=== PATIENT | male | born 1950 | race Caucasian/White ===

== ENCOUNTER 2017-09-10 21:46 | Inpatient (IN) | payer MEDICARE, OTHER ==
[~2017-09-10] VITALS: Ht 172.7 cm; Wt 79.4 kg
[~2017-09-10 21:46] MED LIST: ACET-868 PO; AMIN30LI4 PO; BISA-79 PO; CARV6.252 PO; CLOP75TA15 PO; DEXT1CAP3 PO; DOCU-141 PO; DULO60CA45 PO; LEVO88TA5 PO; LISI-607 PO; MAGN400O21 PO; NA P133E RC; SIMV40TA5 PO
--- NOTE | 2017-09-10 21:50 | NUR ---
[facility] EMS FROM [facility] FOR RIGHT ARM PAIN. NAD NOTED, VSS, RESP EVEN AND UNLABORED, PT WAS PUT ON MONITOR, WAITING FOR MD CAMPBELL.
[2017-09-10] MEDS ORDERED: HYDROCODONE/APAP 5/325MG 1 EACH TABLET ONE (22:27)
[2017-09-10] MEDS ORDERED: HYDROCODONE/APAP 5/325MG 1 EACH TABLET PO ONE (22:30)
[2017-09-10] MEDS ORDERED: IOHEXOL-300 100 ML VIAL IV ONE (22:43)
[2017-09-10] MEDS ORDERED: IV NS 0.9% 250 ML IV ONE (22:43)
[2017-09-10 23:00] LABS: CALCIUM, SERUM 8.9 mg/dL (8.5-10.1); CARBON DIOXIDE 29 mmol/L (21-32); CHLORIDE 108 mmol/L (98-107); CREATININE 1.2 mg/dL (0.6-1.3); GLUCOSE 92 mg/dL (74-106); POTASSIUM 4.5 mmol/L (3.5-5.1); SODIUM SERUM 142 mmol/L (136-145); UREA NITROGEN, BLOOD 26 mg/dL (7-18)
[2017-09-10 23:04] LABS: INR 0.99 (0.87-1.13)
[2017-09-10 23:07] LABS: BASOPHILS # (AUTO) 0.1 /CMM (0.0-0.2); BASOPHILS % (AUTO) 1.5 % (0.0-2.0); EOSINOPHILS # (AUTO) 0.8 /CMM (0.0-0.7); EOSINOPHILS % (AUTO) 9.9 % (0.0-6.0); HEMATOCRIT 34 % (39-51); HEMOGLOBIN 11.9 g/dL (13.5-17.5); LYMPHOCYTES % (AUTO) 39.2 % (20.0-44.0); MEAN CORPUSCULAR HEMOGLOBIN 33 PG (26.0-33.0); MEAN CORPUSCULAR HGB CONC 35 g/dl (31.0-36.0); MEAN CORPUSCULAR VOLUME 95 fL (80-96); MONOCYTES # (AUTO) 0.9 /CMM (0.1-1.30); MONOCYTES % (AUTO) 12.2 % (2.0-12.0); NEUTROPHILS # (AUTO) 2.9 /CMM (1.8-8.9); NEUTROPHILS % (AUTO) 37.2 % (43.0-81.0); PLATELET COUNT (AUTO) 109 /CMM (150-450); RDW COEFFICIENT OF VARIATION 12.8 (11.5-15.0); RED BLOOD CELL COUNT(AUTO) 3.57 MIL/uL (4.5-6.0); WHITE BLOOD COUNT (AUTO) 7.7 K/uL (4.3-11.0)
[2017-09-10 23:12] LABS: TROPONIN I < 0.017 ng/mL (0.00-0.056)
[2017-09-10 23:13] LABS: ALANINE AMINOTRANSFERASE 35 U/L (12-78); ALBUMIN 3.1 g/dL (3.4-5.0); ALCOHOL, BLOOD < 3 mg/dL (0-0); ALKALINE PHOSPHATASE 55 U/L (46-116); ASPARTATE AMINOTRANSFERASE 26 U/L (15-37); BILIRUBIN,DIRECT 0.1 mg/dL (0.0-0.2); BILIRUBIN,TOTAL 0.6 mg/dL (0.2-1.0)
--- NOTE | 2017-09-11 00:55 | NUR ---
PT TO CT
--- NOTE | 2017-09-11 01:15 | NUR ---
PT BACK FROM CT
[2017-09-11] MEDS ORDERED: MAGNESIUM HYDROXIDE 30 ML UDC PO PRN (03:00)
[2017-09-11] MEDS ORDERED: BISACODYL (5 MG) 5 MG TABLET.DR PO PRN (03:00)
[2017-09-11] MEDS ORDERED: ONDANSETRON HCL/PF 4 MG/2 ML VIAL IVP PRN (03:00)
[2017-09-11] MEDS ORDERED: ZOLPIDEM TARTRATE 5 MG TABLET PO PRN (03:00)
[2017-09-11] MEDS ORDERED: MAG HYDROX/AL HYDROX/SIMETH 30 ML UDC PO PRN (03:00)
[2017-09-11] MEDS ORDERED: Z GUARD REMEDY 2 OZ OINT TP PRN (03:00)
[2017-09-11] MEDS ORDERED: HYDROCODONE/APAP 5/325MG 1 EACH TABLET PO PRN (03:00)
--- NOTE | 2017-09-11 03:07 | NUR ---
Report given to Екатерина TAN for continuation of care.
--- NOTE | 2017-09-11 03:11 | NUR ---
pt to [facility] via [facility].
[2017-09-11 03:15] VITALS: BP 127/80
--- NOTE | 2017-09-11 03:15 | NUR ---
RN MS ADMITTING NOTES RECEIVED PATIENT AWAKE AND ALERT X 2 NOTED CONFUSED, RESPIRATIONS EVEN AND UNLABORED, NO FACIAL GRIMACING NOTED NO COMPLAINTS OF PAIN, IV SITE TO LEFT THUMB 22 GAUGE, INTACT AND PATENT, NO REDNESS NO INFILTRATION PRESENT, BODY ASSESSMENT DONE DISCOLORATIONS TO CHIN , LEFT AND RIGHT TORSO,RIGHT ARM WITH SWELLING AND DISCOLORATION, MD AWARE WITH ADMITTING ORDERS IN PLACE, ORIENTED TO UNIT, STAFF AND ROOM ,SAFETY MEASURES IN PLACE, PERINEAL CARE GIVEN,REPOSITIONED, CALL LIGHT KEPT WITHIN REACH, WILL CONTINUE TO MONITOR.
--- NOTE | 2017-09-11 06:50 | NUR ---
RN MS CLOSING NOTES PATIENT AWAKE AND ALERT X 2 NOTED CONFUSED, RESPIRATIONS EVEN AND UNLABORED, NO FACIAL GRIMACING NOTED NO COMPLAINTS OF PAIN, IV SITE TO LEFT THUMB 22 GAUGE, INTACT AND PATENT, NO REDNESS NO INFILTRATION PRESENT, SAFETY MEASURES IN PLACE, PERINEAL CARE GIVEN, REPOSITIONED ,PATIENT HAD A BOWEL MOVEMENT , CALL LIGHT KEPT WITHIN REACH, WILL CONTINUE TO MONITOR AND ENDORSE TO NEXT SHIFT.
--- NOTE | 2017-09-11 07:00 | NUR ---
RN MS NOTES. CALLED AND LEFT MESSAGE TO [facility] REGARDING DVT PUMPS DELIVERY , ENDORSED TO NEXT SHIFT
--- NOTE | 2017-09-11 07:10 | NUR ---
MSRN OPENING NOTES. PT RECEIVED A&0X1, UNABLE TO RECALL YEAR, LOCATION OR PERSONAL HISTORY. PT TOLERATING ROOM AIR WITHOUT SOB OR RESP DISTRESS. PT DENIES PAIN AND IS WITHOUT S/S OF DISTRESS OR DISCOMFORT. PT WITH IVC WRAPPED AT L THUMB, SITE UN-WRAPPED FOR INSPECTION AND SALINE FLUSH PATENT, NAD AT SITE AND NEURO INTACT. PT BED IN LOWEST LOCKED POSITION WITH HANDRAILSX2 AND CALL RICKS WITHIN REACH, CALL RICKS USE RE-EXPLAINED, BED ALARM ENGAGED. PT BRIEFED ON TODAY'S POC AND IS WITHOUT CONCERN OR COMPLAINT. WILL CONTINUE TO REORIENTATE AND SUPPORT NEEDED.
[2017-09-11 08:00] VITALS: BP 117/87
[2017-09-11] MEDS: ACETAMINOPHEN 325 MG TABLET PO PRN ×2 (08:21→16:56)
[2017-09-11] MEDS: LEVOTHYROXINE SODIUM 88 MCG TABLET PO SCH (08:22)
[2017-09-11] MEDS: DOCUSATE SODIUM 100 MG CAPSULE PO SCH (08:22)
[2017-09-11] MEDS: CARVEDILOL 6.25 MG TABLET PO SCH ×2 (08:22→16:56)
[2017-09-11] MEDS: LISINOPRIL (5MG) 5 MG TABLET PO SCH (08:23)
[2017-09-11] MEDS: DULOXETINE HCL 20 MG CAPSULE.DR PO SCH (08:23)
[2017-09-11] MEDS: CLOPIDOGREL BISULFATE 75 MG TABLET PO SCH (08:23)
--- NOTE | 2017-09-11 10:45 | NUR ---
GEETHA. SPOKE WITH [facility] Karma Snap [facility] JASON R/T PT. JASON REPORTS PT IS NORMALLY CONFUSED AND ESTIMATES PT A&0X1. JASON REPORTS PT HAD A GROUND LEVEL FALL IN ROOM RESULTING IN R ARM PAIN.
[2017-09-11 16:00] VITALS: BP 134/71
--- NOTE | 2017-09-11 18:19 | NUR ---
MSRN CLOSING NOTES. PT REMAINS A&0X1, WITH INTERMITTENT INAPPROPRIATE SMILING OR LAUGHING- MD AWARE. PT TOLERATING ROOM AIR WITHOUT SOB OR RESP DISTRESS. PT WITH PAIN AT RIGHT ARM CURRENTLY CONTROLLED WITH PRN, PT WITHOUT OBVIOUS DISTRESS OR DISCOMFORT. PT IVC REMAINS INTACT, SL AND WRAPPED AT L THUMB, NAD AT SITE AND NEURO INTACT. PT BED IN LOWEST LOCKED POSITION WITH HANDRAILSX2 AND CALL RICKS WITHIN REACH, BED ALARM ENGAGED. ALL DAY NURSE DUTIES ATTENDED TO AND PT IS WITHOUT CONCERN OR COMPLAINT AT THIS TIME. WILL ENDORSE TO NIGHT NURSE AT BEDSIDE FOR JESÚS.
--- NOTE | 2017-09-11 19:15 | NUR ---
MS RN OPENING NOTES: RECEIVED PT IN BED AND IS AWAKE. PT IS LAYING DOWN WATCHING TELEVISION AT THIS MOMENT. PT IS A/OX1. BED ALARM ACTIVATED. PT HAS IV ON L THUMB #22G AND IS PATENT AND INTACT. CALL LIGHT WITHIN PT'S REACH. BED KEPT IN LOW, LOCKED POSITION, AND SIDE RAILS X 2UP. WILL CONTINUE TO MONITOR PT.
[2017-09-11 20:00] VITALS: BP_SYST 110; BP_SYST 128; BP_DIAS 72; BP_DIAS 81
[2017-09-11] MEDS: SIMVASTATIN 40 MG TABLET PO SCH (21:14)
--- NOTE | 2017-09-12 06:31 | NUR ---
MS RN CLOSING NOTES: ALL NEEDS WERE ATTENDED AND ANTICIPATED FOR. PT IS A/OX1. PT AWAKE AND IS WATCHING TELEVISION. BED ALARM ACTIVATED. CALL LIGHT WITHIN PT'S REACH. BED KEPT IN LOW, LOCKED POSITION, AND SIDE RAILS X 2UP. NO SOB NOTED. NO S/S OF DISTRESS. WILL ENDORSE TO AM NURSE FOR JESÚS.
--- NOTE | 2017-09-12 07:45 | NUR ---
RN OPENING NOTES RECEIVED PT. PT IS STABLE AND RESTING IN BED. NO S/S OF RESP DISTRESS OR SOB. NO C/O PAIN AT THIS TIME. PT IS A/OX1 YET, DISPLAYING S/S OF CONFUSION. IV ACCESS LOCATED ON LEFT THUMB 22G SL. SAFETY MEASURES IN PLACE, CALL LIGHT WITHIN REACH. WILL CONTINUE TO MONITOR.
[2017-09-12 08:00] VITALS: BP 128/85
[2017-09-12 08:14] LABS: BILIRUBIN,TOTAL 0.8 mg/dL (0.2-1.0); CALCIUM, SERUM 8.9 mg/dL (8.5-10.1); CREATININE 1.1 mg/dL (0.6-1.3); MAGNESIUM 2.6 mg/dL (1.8-2.4); PHOSPHORUS 3.2 mg/dL (2.5-4.9); POTASSIUM 4.3 mmol/L (3.5-5.1); TOTAL PROTEIN, SERUM 6.9 g/dL (6.4-8.2)
[2017-09-12 08:16] LABS: BASOPHILS % (AUTO) 0.7 % (0.0-2.0); EOSINOPHILS # (AUTO) 0.5 /CMM (0.0-0.7); EOSINOPHILS % (AUTO) 7.2 % (0.0-6.0); HEMATOCRIT 36 % (39-51); HEMOGLOBIN 12.2 g/dL (13.5-17.5); LYMPHOCYTES % (AUTO) 29.2 % (20.0-44.0); MEAN CORPUSCULAR HEMOGLOBIN 32 PG (26.0-33.0); MEAN CORPUSCULAR HGB CONC 34 g/dl (31.0-36.0); MEAN CORPUSCULAR VOLUME 96 fL (80-96); MONOCYTES % (AUTO) 14.9 % (2.0-12.0); NEUTROPHILS # (AUTO) 3.2 /CMM (1.8-8.9); PLATELET COUNT (AUTO) 124 /CMM (150-450); RDW COEFFICIENT OF VARIATION 12.8 (11.5-15.0); WHITE BLOOD COUNT (AUTO) 6.7 K/uL (4.3-11.0)
[2017-09-12 08:22] LABS: THYROID STIMULATING HORMONE 3.419 uIU/mL (0.358-3.74)
[2017-09-12] MEDS: LISINOPRIL (5MG) 5 MG TABLET PO SCH (09:00)
[2017-09-12] MEDS: DULOXETINE HCL 20 MG CAPSULE.DR PO SCH (09:14)
[2017-09-12] MEDS: CARVEDILOL 6.25 MG TABLET PO SCH ×2 (09:15→17:13)
[2017-09-12] MEDS: CLOPIDOGREL BISULFATE 75 MG TABLET PO SCH (09:15)
[2017-09-12] MEDS: LEVOTHYROXINE SODIUM 88 MCG TABLET PO SCH (09:15)
[2017-09-12] MEDS: DOCUSATE SODIUM 100 MG CAPSULE PO SCH (09:15)
[2017-09-12 10:14] LABS: THYROID STIMULATING HORMONE 3.638 uIU/mL (0.358-3.74)
--- NOTE | 2017-09-12 12:47 | NUR ---
WOUND CARE CONSULT: PT EATING LUNCH AT THIS TIME. LIMITED ASSESSMENT AT THIS TIME DUE TO PT EATING. RT ARM NOTED TO HAVE BRUISING, DISCOLORATION AND RAISED AREA TO ARM. DEFER TO MD. WILL SEE PRN. CURRENT DESEAN SCORE IS 15. MD IN AGREEMENT WITH PLAN OF CARE.
[2017-09-12 16:00] VITALS: BP 118/78
[2017-09-12 17:47] LABS: APPEARANCE,URINE SL CLOUDY (CLEAR); BILIRUBIN,URINE NEGATIVE (NEGATIVE); BLOOD, URINE TRACE-INTA Ery/uL (NEGATIVE); COLOR,URINE YELLOW (YELLOW); KETONES,URINE NEGATIVE (NEGATIVE); LEUKOCYTE ESTERASE ,URINE NEGATIVE (NEGATIVE); NITRITE, URINE NEGATIVE (NEGATIVE); PROTEIN,URINE NEGATIVE (NEGATIVE); UGLUCOSE NEGATIVE (NEGATIVE)
[2017-09-12 18:15] LABS: BACTERIA,URINE Many /HPF (None Seen); RBC,URINE 0-2 /HPF (0-2); SQUAMOUS EPITHELIAL CELL,UR Few /HPF (None Seen)
--- NOTE | 2017-09-12 18:29 | NUR ---
RN CLOSING NOTE PT IN BED RESTING. NO S/S OF RESP DISTRESS OR SOB. PT HAS NO C/O PAIN AT THIS TIME. ALL PT NEEDS ANTICIPATED AND MET. SAFETY MEASURES IN PLACE, CALL LIGHT WITHIN REACH. WILL ENDORSE TO MAIL SORTING SUPERVISOR FOR JESÚS.
[2017-09-12 20:00] VITALS: BP 124/81
[2017-09-12] MEDS: SIMVASTATIN 40 MG TABLET PO SCH (23:08)
--- NOTE | 2017-09-13 06:36 | NUR ---
MS RN NOTE PATIENT STABLE. ALL NEEDS MET AND ATTENDED TO. WILL ENDORSE TO DAY SHIFT FOR JESÚS.
[2017-09-13] MEDS: LEVOTHYROXINE SODIUM 88 MCG TABLET PO SCH (07:02)
--- NOTE | 2017-09-13 07:46 | NUR ---
RN OPENING NOTES RECEIVED PT, RESTING COMFORTABLY IN BED,EASILY AROUSABLE DURING CARE. RESPIRATIONS EVEN AND UNLABORED, . NO C/O PAIN OR DISCOMFORT AT THIS TIME. PT IS A/OX1 YET, DISPLAYING S/S OF CONFUSION. IV ACCESS LOCATED ON LEFT THUMB 22G SL PATENT AND INTACT, NO REDNESS OR INFILTRATION NOTED. SAFETY MEASURES IN PLACE, CALL LIGHT WITHIN REACH. WILL CONTINUE TO MONITOR.
[2017-09-13 08:00] VITALS: BP 118/85
[2017-09-13] MEDS: DOCUSATE SODIUM 100 MG CAPSULE PO SCH (08:58)
[2017-09-13] MEDS: CLOPIDOGREL BISULFATE 75 MG TABLET PO SCH (08:58)
[2017-09-13] MEDS: CARVEDILOL 6.25 MG TABLET PO SCH ×2 (08:59→16:20)
[2017-09-13] MEDS: LISINOPRIL (5MG) 5 MG TABLET PO SCH (08:59)
[2017-09-13] MEDS: DULOXETINE HCL 20 MG CAPSULE.DR PO SCH (08:59)
[2017-09-13] MEDS: CEFTRIAXONE 1 G in IV D5W 50 ML IV SCH (15:51)
[2017-09-13 16:00] VITALS: BP 123/74
--- NOTE | 2017-09-13 16:40 | NUR ---
RN NOTES ALL DUE MEDICATIONS GIVEN WITH NO ASE NOTED, WILL CONTINUE TO MONITOR
--- NOTE | 2017-09-13 19:16 | NUR ---
RN CLOSING NOTES PT RESTING COMFORTABLY IN BED,EASILY AROUSABLE DURING CARE. RESPIRATIONS EVEN AND UNLABORED, . NO C/O PAIN OR DISCOMFORT AT THIS TIME. PT IS A/OX1 YET, DISPLAYING S/S OF CONFUSION. IV ACCESS LOCATED ON LEFT THUMB 22G SL PATENT AND INTACT, NO REDNESS OR INFILTRATION NOTED. SAFETY MEASURES IN PLACE, CALL LIGHT WITHIN REACH, ENDORSED TO NEXT SHIFT FOR CONTINUITY OF CARE
--- NOTE | 2017-09-13 19:54 | NUR ---
RECIEVED WITH EYES OPEN GOOD EYE CONTACT WHEN NUSE INTODUCES ME AND TOLD HIM TO SAY " hI", HE DID AND SPEECH WAS CLEAR. NOTED HE THEN SHUT HIS EYES . HE WOULD STILL FOLLOW DIRECTIONS LIKE SQUEESE MY HANDS AND HE DID, THE ANIMAL THERAPIST IS WEAK BILATERLLY, HE WIGGLED HIS TOES AND LIFTED BOTH LEGS ONE AT A TIME, BUT KEPT HIS EYES CLOSED. NOTED RESPIRATIONS ARE UNLbored, AND REGULAR, SKIN WRAM AND DRY. BED ALARM ON.
[2017-09-13 20:00] VITALS: BP 114/76
[2017-09-13] MEDS: SIMVASTATIN 40 MG TABLET PO SCH (22:20)
--- NOTE | 2017-09-14 05:00 | NUR ---
CLOSING NOTES: NOTED HIM SMILING AND TALKING ( ONE TO TWO ) WORDS WHEN I AM AT HIS BEDSIDE. FED HIM A SNACK LAST NIGHT AND HE CONSUMED IT 100%, NO PROBLEMS SWALLOWING, EXCEPT THERE IS A NEED TO CRUSH LARGE PILLS. RIGHT ARM ELEVATED ON 2 PILLOWS AND NOTED A DECREASE IN THE SWELLING OF THE HAND AND FINGERS. HE REMAINS CONFUSED, BUT WILL FOLLOW SIMPLE DIRECTIONS. RIGHT HAND STORY READER WEAKER THEN THE LEFT.
[2017-09-14 07:19] LABS: BASOPHILS % (AUTO) 0.1 % (0.0-2.0); EOSINOPHILS # (AUTO) 0.2 /CMM (0.0-0.7); EOSINOPHILS % (AUTO) 2.7 % (0.0-6.0); HEMATOCRIT 39 % (39-51); HEMOGLOBIN 13.3 g/dL (13.5-17.5); LYMPHOCYTES # (AUTO) 3.1 /CMM (0.8-4.8); LYMPHOCYTES % (AUTO) 36.4 % (20.0-44.0); MEAN CORPUSCULAR HEMOGLOBIN 33 PG (26.0-33.0); MEAN CORPUSCULAR HGB CONC 34 g/dl (31.0-36.0); MEAN CORPUSCULAR VOLUME 96 fL (80-96); MONOCYTES # (AUTO) 1.7 /CMM (0.1-1.30); MONOCYTES % (AUTO) 20.7 % (2.0-12.0); NEUTROPHILS # (AUTO) 3.4 /CMM (1.8-8.9); NEUTROPHILS % (AUTO) 40.1 % (43.0-81.0); PLATELET COUNT (AUTO) 150 /CMM (150-450); RDW COEFFICIENT OF VARIATION 13.8 (11.5-15.0); RED BLOOD CELL COUNT(AUTO) 4.05 MIL/uL (4.5-6.0); WHITE BLOOD COUNT (AUTO) 8.4 K/uL (4.3-11.0)
[2017-09-14 07:26] LABS: CALCIUM, SERUM 8.7 mg/dL (8.5-10.1); CREATININE 1.3 mg/dL (0.6-1.3); POTASSIUM 4.1 mmol/L (3.5-5.1)
--- NOTE | 2017-09-14 07:36 | NUR ---
RN OPENING NOTES RECEIVED PT RESTING COMFORTABLY IN BED,EASILY AROUSABLE DURING CARE. RESPIRATIONS EVEN AND UNLABORED, . NO C/O PAIN OR DISCOMFORT AT THIS TIME. PT IS A/OX1 YET, DISPLAYING S/S OF CONFUSION. IV ACCESS LOCATED ON LEFT THUMB 22G SL PATENT AND INTACT, NO REDNESS OR INFILTRATION NOTED. SAFETY MEASURES IN PLACE, CALL LIGHT WITHIN REACH. WILL CONTINUE TO MONITOR.
[2017-09-14 08:00] VITALS: BP 123/80
[2017-09-14] MEDS: DULOXETINE HCL 20 MG CAPSULE.DR PO SCH (09:11)
[2017-09-14] MEDS: CLOPIDOGREL BISULFATE 75 MG TABLET PO SCH (09:11)
[2017-09-14] MEDS: DOCUSATE SODIUM 100 MG CAPSULE PO SCH (09:12)
[2017-09-14] MEDS: LEVOTHYROXINE SODIUM 88 MCG TABLET PO SCH (09:12)
[2017-09-14] MEDS: LISINOPRIL (5MG) 5 MG TABLET PO SCH (09:12)
[2017-09-14] MEDS: CARVEDILOL 6.25 MG TABLET PO SCH ×2 (09:12→17:07)
[2017-09-14 09:44] LABS: EOSINOPHILS % (MANUAL) 2 % (0-4); LYMPHOCYTES % (MANUAL) 29 % (16-48); MONOCYTES % (MANUAL) 14 % (0-11.0); NEUTROPHILS % (MANUAL) 55 (42-76)
[2017-09-14] MEDS: CEFTRIAXONE 1 G in IV D5W 50 ML IV SCH (14:10)
[2017-09-14 16:00] VITALS: BP 129/80
--- NOTE | 2017-09-14 19:30 | NUR ---
MS/BICYCLE MECHANIC; RECEIVED PT IN BED AWAKE, ALERT AND VERBALLY RESPONSIVE WHEN I ASKED WHAT IS HIS NAME AND HE SAID KI. DENIES PAIN. BREATHING NON LABORED.BED ON LOWER POSITION AND LOCKED FOR SAFETY. SIDE RAILS UPPER PART OF BED ARE UP FOR SAFETY. PT INSTRUCTED TO CALL FOR HELP AND CALL LIGHT WITHIN REACH. WILL CONTINUE TO MONITOR. HL ON LT THUMP INTACT. WILL CONTINUE TO MONITOR.
--- NOTE | 2017-09-14 19:34 | NUR ---
RN CLOSING NOTES PT RESTING COMFORTABLY IN BED,EASILY AROUSABLE DURING CARE. RESPIRATIONS EVEN AND UNLABORED, . NO C/O PAIN OR DISCOMFORT AT THIS TIME. PT IS A/OX1 YET, DISPLAYING S/S OF CONFUSION. IV ACCESS LOCATED ON LEFT THUMB 22G SL PATENT AND INTACT, NO REDNESS OR INFILTRATION NOTED. SAFETY MEASURES IN PLACE, CALL LIGHT WITHIN REACH. ENDORSED TO NEXT SHIFT FOR CONTINUITY OF CARE
[2017-09-14 20:00] VITALS: BP 104/76
[2017-09-14] MEDS: SIMVASTATIN 40 MG TABLET PO SCH (21:21)
--- NOTE | 2017-09-14 22:30 | NUR ---
MS/MEDICAL ASSOCIATE; VISITED BY FANNIE MUNGUIA NO NEW ORDERS MADE.
--- NOTE | 2017-09-15 07:00 | NUR ---
MS/BOAT HOP; SLEPT FAIRLY. BREATHING NON LABORED. DENIES PAIN. INCONTINENT OF URINE. PERINEAL CARE DONE BY THE TRADE ANALYST. HAS BEEN TURNED AND REPOSITIONED. WILL CONTINUE TO MONITOR. WILL ENDORSE TO THE DAY SHIFT FOR CONTINUITY OF CARE.
[2017-09-15 08:00] VITALS: BP 154/98
--- NOTE | 2017-09-15 08:09 | NUR ---
RN OPENING NOTES RECEIVED PT. IN BED A&OX1, CONFUSED, VERBALLY RESPONSIVE. BREATHING UNLABORED, AND EVENLY ON ROOM AIR. DENIES PAIN. NO S/S OF ACUTE DISTRESS. IV ACCESS ON LEFT THUMB. APPLIED DVT PUMPS. BED IS IN LOWEST, AND LOCKED POSITION. 2 SIDE RAILS UP, AND CALL LIGHT WITHIN REACH FOR ASSISTANCE. ALL NEEDS MET WILL CONTINUE TO ASSESS AND MONITOR.
[2017-09-15] MEDS: DOCUSATE SODIUM 100 MG CAPSULE PO SCH (09:03)
[2017-09-15] MEDS: CARVEDILOL 6.25 MG TABLET PO SCH ×2 (09:04→17:08)
[2017-09-15] MEDS: LEVOTHYROXINE SODIUM 88 MCG TABLET PO SCH (09:04)
[2017-09-15] MEDS: LISINOPRIL (5MG) 5 MG TABLET PO SCH (09:04)
[2017-09-15] MEDS: DULOXETINE HCL 20 MG CAPSULE.DR PO SCH (09:04)
[2017-09-15] MEDS: CLOPIDOGREL BISULFATE 75 MG TABLET PO SCH (09:04)
[2017-09-15] MEDS ORDERED: CEFEPIME 1 GM in IV D5W 50 ML IV SCH (13:00)
[2017-09-15] MEDS ORDERED: CEFEPIME 1 GM in IV D5W 100 ML IV SCH (13:02)
[2017-09-15] MEDS: CEFEPIME 1 GM in IV D5W 100 ML IV SCH ×2 (14:06→22:09)
[2017-09-15 16:41] VITALS: BP 125/85
--- NOTE | 2017-09-15 19:03 | NUR ---
RN CLOSING NOTES PT. IS IN BED A&OX1, VERBALLY RESPONSIVE. BREATHING UNLABORED, AND EVENLY ON ROOM AIR. DENIES PAIN. NO S/S OF ACUTE DISTRESS. IV ACCESS ON LEFT THUMB. BED IS IN LOWEST, AND LOCKED POSITION. 2 SIDE RAILS UP, AND CALL LIGHT WITHIN REACH FOR ASSISTANCE. ALL NEEDS MET WILL ENDORSE REPORT TO NURSE.
--- NOTE | 2017-09-15 19:45 | NUR ---
MS/MANAGER RESEARCH DEVELOPMENT; RECEIVED PT IN BED SLEEPING BUT AROUSABLE AND VERBALLY RESPONSIVE. BREATHING NON LABORED. HL ON LT THUMB INTACT. RT ARM STILL SWOLLEN. BED ON LOWER POSITION AND LOCKED FOR SAFETY. SIDE RAILS X 2 ARE UP FOR SAFETY. CONTINUE TO MONITOR. CALL LIGHT WITHIN REACH.
[2017-09-15 20:00] VITALS: BP 111/76
[2017-09-15] MEDS ORDERED: AMPICILLIN 500 MG in IV NS 0.9% 50 ML IV SCH (21:00)
[2017-09-15] MEDS: SIMVASTATIN 40 MG TABLET PO SCH (22:14)
--- NOTE | 2017-09-15 22:45 | NUR ---
MS/CREW DISPATCHER; PT ENDORSED TO BRITNEY EID FOR CONTINUITY OF CARE.
[2017-09-15] MEDS: AMPICILLIN 1 GM in IV NS 0.9% 50 ML IV SCH (22:54)
[2017-09-16] MEDS: CEFEPIME 1 GM in IV D5W 100 ML IV SCH ×2 (04:33→13:35)
[2017-09-16] MEDS: AMPICILLIN 1 GM in IV NS 0.9% 50 ML IV SCH ×3 (05:52→17:05)
--- NOTE | 2017-09-16 06:40 | NUR ---
RN CLOSING NOTES PT. IS IN BED A&OX1, VERBALLY RESPONSIVE. BREATHING EVEN AND UNLABORED. ON ROOM AIR. DENIES PAIN. NO S/S OF ACUTE DISTRESS. IV ACCESS ON LEFT THUMB. BED IS IN LOWEST, AND LOCKED POSITION. 2 SIDE RAILS UP, AND CALL LIGHT WITHIN REACH FOR ASSISTANCE. ALL NEEDS MET WILL ENDORSE REPORT TO NURSE.
--- NOTE | 2017-09-16 07:48 | NUR ---
RN OPENING NOTES RECEIVED PT. IN BED A&OX1-2, CONFUSED, VERBALLY RESPONSIVE. BREATHING UNLABORED, AND EVENLY ON ROOM AIR. UNABLE TO ASSESS PAIN. NO S/S OF ACUTE DISTRESS. IV ACCESS ON LEFT THUMB. DVT PUMPS ARE ON. BED IS IN LOWEST, AND LOCKED POSITION. 2 SIDE RAILS UP, AND CALL LIGHT WITHIN REACH FOR ASSISTANCE. ALL NEEDS MET WILL CONTINUE TO ASSESS AND MONITOR.
[2017-09-16 08:35] VITALS: BP 135/68
[2017-09-16] MEDS: DULOXETINE HCL 20 MG CAPSULE.DR PO SCH (09:42)
[2017-09-16] MEDS: DOCUSATE SODIUM 100 MG CAPSULE PO SCH (09:42)
[2017-09-16] MEDS: CARVEDILOL 6.25 MG TABLET PO SCH ×2 (09:43→17:04)
[2017-09-16] MEDS: CLOPIDOGREL BISULFATE 75 MG TABLET PO SCH (09:43)
[2017-09-16] MEDS: LISINOPRIL (5MG) 5 MG TABLET PO SCH (09:43)
[2017-09-16] MEDS: LEVOTHYROXINE SODIUM 88 MCG TABLET PO SCH (09:45)
[2017-09-16 17:04] VITALS: BP 127/88
--- NOTE | 2017-09-16 19:00 | NUR ---
RN CLOSING NOTES PT. IS IN BED A&OX1, VERBALLY RESPONSIVE, AND CONFUSED. BREATHING UNLABORED, AND EVENLY ON ROOM AIR. PICTURES TAKEN PRIOR TO DISCHARGE. DISCHARGE PAPERS, BELONGING LIST CHECKED, AND SIGNED. REMOVED IV WITHOUT COMPLICATIONS. DISCHARGE PAPERS WERE SIGNED WITH ANOTHER NURSE. BED IS IN LOWEST, AND LOCKED POSITION. WILL ENDORSE REPORT TO SN[facility], AND NOTIFY ABOUT TRANSFER TO FAMILY.
--- NOTE | 2017-09-16 19:30 | NUR ---
RN OPENING NOTES RECEIVED REPORT FROM CECILIO. PT DUE FOR DISCHARGE TO [facility] THIS EVENING. PT IS AWAKE AND ALERT. ORIENTED TO SELF ONLY. PER DAY SHIT NURSE IV HAS BEEN REMOVED AND ALL DISCHARGE PAPERWORK IS COMPLETED. WILL CONTINUE TO MONITOR.
--- NOTE | 2017-09-16 20:15 | NUR ---
RN NOTES [facility]ORT ARRIVED AT 1944. PT VITAL SIGNS ARE STABLE AND ALL DISCHARGE PAPERWORK SENT WITH PATIENT TO BE RECEIVED AT [facility]. GAVE REPORT TO MADDIE AT [facility] AT 1956. CALLED SON GORDON RIOS AT 1999. PT LEFT UNIT AT 2009.
== END 2017-09-16 20:10 | DRG 56 ==
LOC: ER 21:48 → TELE 09-11 02:59 → MED 09-11 04:49
DX: G91.9 Hydrocephalus, unspecified (principal); G93.40 Encephalopathy, unspecified; N17.0 Acute kidney failure with tubular necrosis; D69.6 Thrombocytopenia, unspecified; E44.1 Mild protein-calorie malnutrition; E88.09 Other disorders of plasma-protein metabolism, not elsewhere classified; N39.0 Urinary tract infection, site not specified; W19.XXXA Unspecified fall, initial encounter; G90.8 Other disorders of autonomic nervous system; D64.9 Anemia, unspecified; B96.20 Unspecified Escherichia coli [E. coli] as the cause of diseases classified elsewhere; E78.5 Hyperlipidemia, unspecified; K21.9 Gastro-esophageal reflux disease without esophagitis; Z86.73 Personal history of transient ischemic attack (TIA), and cerebral infarction without residual deficits; I10 Essential (primary) hypertension; E11.9 Type 2 diabetes mellitus without complications; E03.9 Hypothyroidism, unspecified; F41.9 Anxiety disorder, unspecified; I25.10 Atherosclerotic heart disease of native coronary artery without angina pectoris; Z98.61 Coronary angioplasty status; J32.9 Chronic sinusitis, unspecified; F31.9 Bipolar disorder, unspecified; J44.9 Chronic obstructive pulmonary disease, unspecified; S40.021A Contusion of right upper arm, initial encounter; Y93.9 Activity, unspecified; Y92.89 Other specified places as the place of occurrence of the external cause; I34.0 Nonrheumatic mitral (valve) insufficiency; S40.022A Contusion of left upper arm, initial encounter; S80.12XA Contusion of left lower leg, initial encounter; S80.11XA Contusion of right lower leg, initial encounter; I25.2 Old myocardial infarction; G31.9 Degenerative disease of nervous system, unspecified; I65.23 Occlusion and stenosis of bilateral carotid arteries; M85.80 Other specified disorders of bone density and structure, unspecified site; Z68.26 Body mass index [BMI] 26.0-26.9, adult; S50.11XA Contusion of right forearm, initial encounter; F39 Unspecified mood [affective] disorder; B95.2 Enterococcus as the cause of diseases classified elsewhere; B96.4 Proteus (mirabilis) (morganii) as the cause of diseases classified elsewhere; B96.89 Other specified bacterial agents as the cause of diseases classified elsewhere; G30.9 Alzheimer's disease, unspecified; F02.80 Dementia in other diseases classified elsewhere, unspecified severity, without behavioral disturbance, psychotic disturbance, mood disturbance, and anxiety; N40.1 Benign prostatic hyperplasia with lower urinary tract symptoms
CPT/HCPCS: 36415; 70450-TC; 71045-TC; 71260-TC; 72125-TC; 73080-TC; 73090-TC; 80048-TC; 80053-TC; 80061-TC; 80076-TC; 80305; 81000-TC; 82306; 82728-TC; 83540-TC; 83735-TC; 84100-TC; 84439-TC; 84443-TC; 84484-TC; 85025-TC; 85730-TC; 86850-TC; 87081-TC; 87086-TC; 87186-TC; 93307-TC; A4216; A4349; A4606; G0480; J0290; J0692; J0696; J7050; J7060; Q9967; Z7610